=== PATIENT | female | born 1945 | race Caucasian/White ===

== ENCOUNTER → 2017-11-25 15:40 | Outpatient (CLI) | payer MEDICARE, OTHER ==
[2011-12-07 08:50] VITALS: BMI 32.0
[2017-11-25 15:57] LABS: APPEARANCE CLEAR (CLEAR); BILIRUBIN NEGATIVE (NEGATIVE); COLOR YELLOW (YELLOW); GLUCOSE NEGATIVE (NEGATIVE); KETONE NEGATIVE (NEGATIVE); NITRITE NEGATIVE (NEGATIVE); PROTEIN NEGATIVE (NEGATIVE); UROBILINOGEN NORMAL (NORMAL)
== END | disposition home or self-care (01) ==
LOC: D.LABREF 15:40
PROVIDERS: Internal Medicine
DX: D51.9 Vitamin B12 deficiency anemia, unspecified (principal); I11.9 Hypertensive heart disease without heart failure